=== PATIENT | male | born 1990 | race Caucasian/White ===

== ENCOUNTER 2019-08-18 11:27 | Emergency (ER) | payer OTHER, SELFPAY ==
[2019-08-18 11:38] VITALS: BP 137/79; PULSE 70; RESP 13; TEMP 36.6; O2SAT 99
--- NOTE | 2019-08-18 11:40 | ED.CHESTPAIN ---
HPI - Chest Pain <PILO Mosher - Last Filed: 08/18/19 22:03> General Chief Complaint: Chest Pain Stated Complaint: chest pain,shaking,high blood pressure,dizzy Time Seen by Provider: 08/18/19 11:39 History of Present Illness HPI narrative: 29yo male presents emergency department complaining of intermittent left-sided sharp stabbing chest pain. He states in May he was working out and started to see black in the corners of his vision during exercise, he wore a Holter monitor and he is scheduled to follow-up with cardiology later this month due to a low risk occasional arrhythmia. Patient is unsure of the name of this arrhythmia. 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 with his child, he got up at 7:45 a.m. and felt ?very tired and maybe a bit dizzy ?. Patient states he went to work at 10:00 a.m. and felt ?slight chest pain ?as described above. He took his blood pressure at that time and noted that it was 145/100, patient took his blood pressure with his hand in a different position immediately after in noted it was 120/90. Patient states the ?twinges of chest pain ?last a few seconds, no pain at this time. He does continue to feel dizzy when sitting up. Patient states his grandfather's brothers reported heart attacks and everyone on his father's side ?is taking metoprolol for her heart. Patient denies aggravating or alleviating symptoms. Patient denies shortness of breath, headaches, vision changes, abdominal pain, nausea, vomiting, diarrhea, other concerns. Related Data Home Medications Medication Instructions Recorded Confirmed No Known Home Medications 08/18/19 08/18/19 Allergies Allergy/AdvReac Type Severity Reaction Status Date / Time No Known Drug Allergies Allergy Verified 08/18/19 11:53 Review of Systems <PILO Mosher - Last Filed: 08/18/19 22:03> Review of Systems Narrative: REVIEW OF SYSTEMS: GENERAL: Denies fever or chills. HENT: No head trauma, hearing loss or sore throat. EYES: No loss of vision, double vision, eye pain, or irritation. CARDIOVASCULAR: Complains of chest pain, see HPI. RESPIRATORY: No shortness of breath or cough. GASTROINTESTINAL: No nausea, vomiting, diarrhea, or constipation. GENITOURINARY: No flank pain or dysuria. MUSCULOSKELETAL: No pain, weakness, or deformities. INTEGUMENTARY: No rash, lesions, or pruritus. NEURO: No numbness, tingling, memory loss, or confusion. PSYCH: No behavior or mood changes. Patient History <PILO Mosher - Last Filed: 08/18/19 22:03> Medical History No significant medical problems (Acute) Social History Smoking Status: Never smoker Substance Use Type: does not use Exam <PILO Mosher - Last Filed: 08/18/19 22:03> Initial Vital Signs Initial Vital Signs: Vital Signs Temperature 98 F 08/18/19 11:38 Pulse Rate 70 08/18/19 11:38 Respiratory Rate 13 08/18/19 11:38 Blood Pressure 137/79 08/18/19 11:38 Pulse Oximetry 99 08/18/19 11:38 PHYSICAL EXAMINATION: GENERAL: Well groomed, alert, and cooperative. Answers questions promptly and appropriately. Vital signs noted. HENT: Normocephalic, atraumatic. Ear canals patent. Oral mucosa is pink and moist. EYES: Conjunctiva pink, sclera white, no periorbital swelling. CHEST: Normal to inspection and without deformities. CARDIOVASCULAR: S1 and S2 sounds normal. Regular rate and rhythm, no murmurs, clicks, or bruits. No pedal edema. RESPIRATORY: Normal respiratory rate, trachea midline, airway patent. No stridor, nasal flaring or accessory muscle use. Lungs are clear in all duque without wheeze, rhonchi, or crackles. GASTROINTESTINAL: Bowel sounds normoactive. Abdomen is soft and non-tender. No organomegaly. MUSCULOSKELETAL: Normal gait and coordination. Equal tone and mass bilaterally. EXTREMITIES: CMS intact. Moves all extremities. SKIN: Warm, dry, soft, appropriate color for ethnicity. No lesions, rashes, or wounds. NEURO: Alert and Oriented X 3. Good coordination. No ataxia, or sensory deficits, or cognitive issues. PSYCH: Appropriate affect and mood. <Carola Wooten DO - Last Filed: 08/20/19 09:37> Initial Vital Signs Initial Vital Signs: Vital Signs Temperature 98 F 08/18/19 11:38 Pulse Rate 70 08/18/19 11:38 Respiratory Rate 13 08/18/19 11:38 Blood Pressure 137/79 08/18/19 11:38 Pulse Oximetry 99 08/18/19 11:38 Scores <Brigitte McintyrePILO - Last Filed: 08/18/19 22:03> HEART Score Heart Score history: Slightly Suspicious Heart Score EKG: Normal Heart Score Age: < 45 years old Heart Score risk factors: No known risk factors Heart Score troponin: < or = to normal limit Heart Score Total: 0 Course <Brigitte BurgerPILO alonzo - Last Filed: 08/18/19 22:03> Course Course Narrative: Patient patient remained chest pain-free throughout the stay in the emergency department, he states he is feeling much better after administration of fluid. Orders Ordered: Discontinued Medications Sodium Chloride (Normal Saline 0.9%) 1,000 mls @ 1,000 mls/hr IV BOLUS ONE Stop: 08/18/19 12:50 Last Infusion: 08/18/19 13:33 Dose: 0 mls/hr Documented by: Admin: 08/18/19 12:20 Dose: 1,000 mls/hr Documented by: DINA Sodium Chloride (Normal Saline 0.9%) 1,000 mls @ 1,000 mls/hr IV BOLUS ONE Stop: 08/18/19 13:39 Last Admin: 08/18/19 12:58 Dose: Not Given Documented by: DINA Consultations Consultation #1: Patient staffed with Dr. Wooten Vital Signs Vital signs: Vital Signs - 8 hr 08/18/19 11:38 08/18/19 13:30 Temperature 98 F Pulse Rate 70 78 Respiratory Rate 13 20 Blood Pressure 137/79 Blood Pressure [Left Arm] 132/75 Pulse Oximetry 99 100 <Carola Wooten DO - Last Filed: 08/20/19 09:37> Orders Ordered: Discontinued Medications Sodium Chloride (Normal Saline 0.9%) 1,000 mls @ 1,000 mls/hr IV BOLUS ONE Stop: 08/18/19 12:50 Last Infusion: 08/18/19 13:33 Dose: 0 mls/hr Documented by: Admin: 08/18/19 12:20 Dose: 1,000 mls/hr Documented by: DINA Sodium Chloride (Normal Saline 0.9%) 1,000 mls @ 1,000 mls/hr IV BOLUS ONE Stop: 08/18/19 13:39 Last Admin: 08/18/19 12:58 Dose: Not Given Documented by: DINA Vital Signs Vital signs: Vital Signs - 8 hr 08/18/19 11:38 08/18/19 13:30 Temperature 98 F Pulse Rate 70 78 Respiratory Rate 13 20 Blood Pressure 137/79 Blood Pressure [Left Arm] 132/75 Pulse Oximetry 99 100 MDM - Chest Pain <PILO Mosher - Last Filed: 08/18/19 22:03> Medical Records Data Attestation: I reviewed the patient's medical records. Lab Data Attestation: I reviewed the patient's lab results. Result diagrams: 08/18/19 12:20 08/18/19 12:20 Labs: Lab Results 08/18/19 08/18/19 Range/Units 12:20 12:20 WBC 4.9 (4.5-11.0) X10^3/uL RBC 4.66 (4.5-5.9) X10^6/uL Hgb 14.4 (13.5-17.5) g/dL Hct 41.4 (41-53) % MCV 88.9 (80-100) fL MCH 30.9 (26-34) PG MCHC 34.8 (30-36) % RDW 13.1 (11.6-14.8) % Plt Count 233 (150-400) X10^3/uL Neut % (Auto) 65.2 (50-75) % Lymph % (Auto) 21.6 L (25-40) % Nicollet % (Auto) 11.6 (3-14) % Eos % (Auto) 1.0 L (2-4) % Baso % (Auto) 0.6 (0-2) % Neut # (Auto) 3200 (3149-3503) /uL Lymph # (Auto) 1100 (3464-8853) /uL Nicollet # (Auto) 600 (0-900) /uL Eos # (Auto) 0 (0-450) /uL Baso # (Auto) 0 (0-100) /uL Sodium 138 (137-145) mmol/L Potassium 4.1 (3.4-5.1) mmol/L Chloride 99 (98-107) mmol/L Carbon Dioxide 25 (22-32) mmol/L BUN 15 (9-20) mg/dL Creatinine 0.70 (0.66-1.25) mg/dL Estimated GFR > 60.0 (>60) mL/min BUN/Creatinine Ratio 21.4 (6-22) Glucose 87 (70-100) mg/dL Calcium 9.5 (8.4-10.2) mg/dL Total Bilirubin 0.6 (0.2-1.3) mg/dL AST 23 (17-59) IU/L ALT 17 (<50) IU/L Alkaline Phosphatase 64 (38-126) U/L Total Creatine Kinase 54 L (55-170) U/L CK-MB (CK-2) TNP CK-MB (CK-2) Rel Index TNP Troponin I < 0.012 (0.01-0.034) ng/mL Total Protein 8.1 (6.3-8.2) g/dL Albumin 4.8 (3.5-5.0) g/dL Globulin 3.3 (1.7-4.1) g/dL Albumin/Globulin Ratio 1.5 (1.0-2.8) Lipase 48 (23-300) U/L Imaging Data Chest x-ray: Radiologist's Impression: [place] [id number] XRay Report Signed Patient: Severino Wilder [facility]#: [id number] : 1990Acct:[id number] Age/Sex: MDate of Service: 08/18/19 Loc: ED Accession Number: [id number] Procedure: XR chest 1V Ordering Provider: Brigitte Mcintyre PROCEDURE: XR CHEST 1V INDICATIONS: Chest pain TECHNIQUE: One view of the chest was acquired. COMPARISON: None. FINDINGS: Surgical changes and devices: None. Lungs and pleura: Lungs are clear. No pleural effusions or pneumothorax. Mediastinum: Mediastinal contours appear normal. Heart size is normal. Bones and chest wall: No suspicious bony lesions. Overlying soft tissues appear unremarkable. IMPRESSION: No evidence acute pulmonary process. Dictated by: Scout Sanchez M.D. on 08/18/2019 at 12:11 Approved by: Scout Sanchez M.D. on 08/18/2019 at 12:11 ECG Data Interpretation: Normal sinus rhythm, rate 71, MI interval 160, QTC 416. No ST elevation or ST depression. No T-wave abnormality. EKG viewed by Dr. Wooten per protocol. [facility] Narrative Medical decision making narrative: 29-year-old male who was reported to have a intermittent arrhythmia after wearing a Holter monitor and has follow-up with cardiology next few weeks, reports to the emergency room for ?twinges of chest pain lasting only a few seconds. Patient remained hemodynamically stable and chest pain free throughout his stay in the emergency department. Patient's heart score is 0, does not have any concerning symptoms such as shortness of breath, tachycardia, hypoxia. Patient has low risk factors. I suspect his chest pain is most likely caused by costochondritis, or anxiety, and less likely cardio pulmonary etiology due to negative x-ray and laboratory work as well as unremarkable EKG. Patient is low risk and was discharged home with strict return precautions. He agrees to plan of care and verbalized understanding. I am unsure the exact cause of patient's episodes of dizziness, however, he states he is feeling much better after administration of fluid and I suspect dehydration may play a role. I also suspect that patient may be feeling his side effects of only having a few hours of sleep last night. <Carola Wooten, DO - Last Filed: 08/20/19 09:37> Lab Data Labs: Lab Results 08/18/19 08/18/19 Range/Units 12:20 12:20 WBC 4.9 (4.5-11.0) X10^3/uL RBC 4.66 (4.5-5.9) X10^6/uL Hgb 14.4 (13.5-17.5) g/dL Hct 41.4 (41-53) % MCV 88.9 (80-100) fL MCH 30.9 (26-34) PG MCHC 34.8 (30-36) % RDW 13.1 (11.6-14.8) % Plt Count 233 (150-400) X10^3/uL Neut % (Auto) 65.2 (50-75) % Lymph % (Auto) 21.6 L (25-40) % Nicollet % (Auto) 11.6 (3-14) % Eos % (Auto) 1.0 L (2-4) % Baso % (Auto) 0.6 (0-2) % Neut # (Auto) 3200 (3471-6948) /uL Lymph # (Auto) 1100 (0743-1743) /uL Nicollet # (Auto) 600 (0-900) /uL Eos # (Auto) 0 (0-450) /uL Baso # (Auto) 0 (0-100) /uL Sodium 138 (137-145) mmol/L Potassium 4.1 (3.4-5.1) mmol/L Chloride 99 (98-107) mmol/L Carbon Dioxide 25 (22-32) mmol/L BUN 15 (9-20) mg/dL Creatinine 0.70 (0.66-1.25) mg/dL Estimated GFR > 60.0 (>60) mL/min BUN/Creatinine Ratio 21.4 (6-22) Glucose 87 (70-100) mg/dL Calcium 9.5 (8.4-10.2) mg/dL Total Bilirubin 0.6 (0.2-1.3) mg/dL AST 23 (17-59) IU/L ALT 17 (<50) IU/L Alkaline Phosphatase 64 (38-126) U/L Total Creatine Kinase 54 L (55-170) U/L CK-MB (CK-2) TNP CK-MB (CK-2) Rel Index TNP Troponin I < 0.012 (0.01-0.034) ng/mL Total Protein 8.1 (6.3-8.2) g/dL Albumin 4.8 (3.5-5.0) g/dL Globulin 3.3 (1.7-4.1) g/dL Albumin/Globulin Ratio 1.5 (1.0-2.8) Lipase 48 (23-300) U/L ECG Data Attestation: I personally reviewed and interpreted this ECG as follows: Prior ECG tracings: not available for review Interpretation: Normal sinus rhythm rate 71 p.r. interval 160 QRS [address] elevation depression or T-wave inversion Discharge Plan Departure Patient Disposition: Home Clinical Impression: Atypical chest pain Discharge Date/Time: 08/18/19 13:46 Instructions: DI for Atypical Chest Pain Activity Restrictions/Additional Instructions: Thank you for entrusting me with your care today. As discussed, your chest x-ray, EKG, and lab work are non-remarkable. Please follow-up with the cyber systems administrator regarding your abnormal rhythm as discussed. Return emergency department for any new or worsening symptoms such as chest pain, shortness of breath, worsening dizziness, uncontrollable vomiting, fevers, or other concerns. Prescriptions: No Action No Known Home Medications RF: 0
--- NOTE | 2019-08-18 11:51 | DI.RAD.S_ITS ---
PROCEDURE: XR CHEST 1V INDICATIONS: Chest pain TECHNIQUE: One view of the chest was acquired. COMPARISON: None. FINDINGS: Surgical changes and devices: None. Lungs and pleura: Lungs are clear. No pleural effusions or pneumothorax. Mediastinum: Mediastinal contours appear normal. Heart size is normal. Bones and chest wall: No suspicious bony lesions. Overlying soft tissues appear unremarkable. IMPRESSION: No evidence acute pulmonary process. Dictated by: Scout Sanchez M.D. on 08/18/2019 at 12:11 Approved by: Scout Sanchez M.D. on 08/18/2019 at 12:11
[2019-08-18] MEDS: SODIUM CHLORIDE 0.9% 1,000 ML 1000 ML IV (12:20)
[2019-08-18 12:30] LABS: Add Manual Diff / Slide Review NO; Basophils Absolute Auto 0 /uL (0-100); Basophils Percent Auto 0.6 % (0-2); Eosinophils Absolute Auto 0 /uL (0-450); Hematocrit 41.4 % (41-53); Hemoglobin 14.4 g/dL (13.5-17.5); Lymphocytes Absolute Auto 1100 /uL (1100-4500); Lymphocytes Percent Auto 21.6 % (25-40); Mean Corpuscular HGB Conc 34.8 % (30-36); Mean Corpuscular Hemoglobin 30.9 PG (26-34); Mean Corpuscular Volume 88.9 fL (80-100); Monocytes Absolute Auto 600 /uL (0-900); Monocytes Percent Auto 11.6 % (3-14); Neutrophils Absolute Auto 3200 /uL (1500-7000); Neutrophils Percent Auto 65.2 % (50-75); Platelet Count 233 X10^3/uL (150-400); Red Blood Cell Count 4.66 X10^6/uL (4.5-5.9); Red Cell Distribution Width 13.1 % (11.6-14.8); White Blood Cell Count 4.9 X10^3/uL (4.5-11.0)
[2019-08-18 12:41] LABS: Alanine Aminotransferase 17 IU/L (<50); Albumin 4.8 g/dL (3.5-5.0); Albumin Globulin Ratio 1.5 (1.0-2.8); Alkaline Phosphatase 64 U/L (38-126); Aspartate Aminotransferase 23 IU/L (17-59); BUN Creatinine Ratio 21.4 (6-22); Bilirubin Total 0.6 mg/dL (0.2-1.3); Blood Urea Nitrogen 15 mg/dL (9-20); Calcium 9.5 mg/dL (8.4-10.2); Carbon Dioxide 25 mmol/L (22-32); Chloride 99 mmol/L (98-107); Creatine Kinase 54 U/L (55-170); Estimated Glomerular Filt Rate > 60.0 mL/min (>60); Globulin 3.3 g/dL (1.7-4.1); Glucose 87 mg/dL (70-100); HEMOLYSIS 19 (0-50); Lipase 48 U/L (23-300); Potassium 4.1 mmol/L (3.4-5.1); Sodium 138 mmol/L (137-145); Total Protein 8.1 g/dL (6.3-8.2)
[2019-08-18 12:53] LABS: Troponin I < 0.012 ng/mL (0.01-0.034)
[2019-08-18 13:30] VITALS: BP 132/75; PULSE 78; RESP 20; O2SAT 100
== END 2019-08-18 13:46 | disposition home or self-care (01) ==
PROVIDERS: Emergency Provider Nurse Practitioner
DX: R07.89 Other chest pain (principal)
CPT/HCPCS: 36415; 71045; 80053; 82550; 83690; 84484; 85025; 93005; 96360; 99284; 99285

== ENCOUNTER → 2019-10-03 09:11 | Outpatient (CLI) | payer OTHER, SELFPAY ==
--- NOTE | 2019-10-03 | DI.ECHO.S_ITS ---
[facility] +---------+ : : [address] : [place] : : : : [id number] : : : : Phone: [phone] Echocardiogram Report + + :Name: SOFIA LERMA Study Date: 10/03/2019 Height: 70 in : :[facility] Weight: 205 lb : : Gender: Male BSA: 2.1 m2 : :: 1990 Age: 29 yrs BP: 138/82 mmHg: :Reason For Study: CHEST PAIN : :Ordering Physician: Sumi : :Petros Curran Performed By: Shari Abdul : :Referring: SUMI PAYNE : + + Interpretation Summary 1) Normal left ventricular size, thickness, wall motion, and systolic function (EF 55-60%). 2) Normal right ventricular size and function. 3) No significant valvular abnormalities. 4) No prior Echo available for comparison. Procedure: A two-dimensional transthoracic echocardiogram with color flow and Doppler was performed. There is no prior echocardiogram noted for this patient. The study quality was technically adequate. The patient was in sinus bradycardia with heart rates between 47-54 bpm during the exam. Left Ventricle: The left ventricle is normal in size. There is normal left ventricular wall thickness. The ejection fraction is estimated to be 55-60%. Left ventricular systolic function is normal without focal wall motion abnormalities. Right Ventricle: The right ventricle is normal in size and function. Atria: The left atrial size is normal. Right atrial size is normal. There is no Doppler evidence for an interatrial shunt. Mitral Valve: The mitral valve is normal in structure and function. There is mild mitral regurgitation. Aortic Valve: The aortic valve is normal in structure and function. The aortic valve is trileaflet. The aortic valve opens well. There is no aortic valve stenosis. No aortic regurgitation is present. Tricuspid Valve: The tricuspid valve is normal in structure and function. There is mild tricuspid regurgitation. Pulmonary artery pressures cannot be estimated because of the lack of a measurable TR jet velocity but the IVC suggests a CVP of around 3 mmHg. Pulmonic Valve: The pulmonic valve is normal in structure and function. There is trace pulmonic regurgitation. Great Vessels: The aortic root is normal size. The dimensions of the ascending aorta are normal. The IVC is of normal diameter and collapses greater than 50% with a sniff. This suggests a low right atrial pressure of 3 mm Hg. Pericardium/ Pleura There is no pericardial effusion. There is no pleural effusion. MMode/2D Measurements & Calculations LVIDd: 5.6 cm Ao root diam: 3.5 cm LVIDs: 4.0 cm asc Aorta Diam: 2.9 cm FS: 28.1 % Ao Arch Diam (Prox Trans): 2.7 cm EPSS: 0.51 cm IVSd: 0.83 cm LVPWd: 0.86 cm LV posadas. diameter/BSA (cm/m^2): 2.6 LV sys. diameter/BSA (cm/m^2): 1.9 LA A2 area: 18.8 cm2 RA long axis: 5.0 cm LA A4 area: 19.0 cm2 RA area: 18.5 cm2 LA length (vol): 5.7 cm RA vol: 58.7 ml LA vol: 53.5 ml RA : 27.8 ml/m2 LA vol index: 25.3 ml/m2 IVC diam: 1.8 cm RVD1 (basal): 3.2 cm TAPSE: 2.2 cm Doppler Measurements & Calculations Ao V2 max: 106.3 cm/sec LVOT Max Waylon: 83.2 cm/sec Ao V2 mean: 69.6 cm/sec LV V1 max P.8 mmHg Ao max P.5 mmHg LV V1 VTI: 20.2 cm Ao mean P.2 mmHg sev ratio: 0.80 Ao V2 VTI: 25.4 cm MV E max waylon: 78.6 cm/sec PA V2 max: 70.0 cm/sec MV A max waylon: 39.3 cm/sec PA V2 mean: 45.7 cm/sec MV E/A: 2.0 PA mean P.98 mmHg Med Peak E' Waylon: 14.2 cm/sec PA Accel Time: 0.12 sec E/E' med: 5.5 Lat Peak E' Waylon: 19.5 cm/sec E/E' lat: 4.0 E/e' average: 4.8 MV dec time: 0.25 sec MV P1/2t: 73.2 msec MV P1/2t max waylon: 80.2 cm/sec MVA(P1/2t): 3.0 cm2 Reading Physician:04:32 PM
== END ==
PROVIDERS: Referring Provider Internal Medicine; Visit Provider Internal Medicine
DX: I08.1 Rheumatic disorders of both mitral and tricuspid valves (principal); R07.9 Chest pain, unspecified
CPT/HCPCS: 93306

== ENCOUNTER → 2020-01-07 14:56 | Outpatient (CLI) | payer OTHER, SELFPAY ==
[2020-01-08 08:57] LABS: COVID19 Sendout Not Detected (Not Detect)
== END ==
PROVIDERS: Visit Provider Physician Assistant
DX: Z11.59 Encounter for screening for other viral diseases (principal)
CPT/HCPCS: 87635

== ENCOUNTER 2020-01-10 11:36 | Day surgery (SDC) | payer OTHER, SELFPAY ==
[2020-01-10] VITALS (7 sets, daily range): BP systolic 109–122; BP diastolic 64–77; PULSE 62–77; RESP 12–17; TEMP 36.2–36.6; O2SAT 95–100; BMI 30.8
--- NOTE | 2020-01-10 | PATH_ITS ---
[facility] Accession Number: [id number] . 01 Material submitted: . PART A: small bowel - SMALL BOWEL PART B: gastrointestinal site - GASTRIC PART C: esophagus - ESOPHAGEAL . 02 Diagnosis: A. Small Bowel, Biopsy: Duodenal mucosa with no diagnostic abnormality. Negative for active inflammation, features of sprue, dysplasia, or malignancy. . B. Stomach, Biopsy: Body mucosa with no diagnostic abnormality. No evidence of Helicobacter organisms on H/E stain. Negative for intestinal metaplasia. Negative for dysplasia and malignancy. . C. Esophagus, Biopsy: Squamocolumnar junctional mucosa with mild reactive features of reflux esophagitis. Focally up to 10 eosinophils per high-power field. Negative for specialized intestinal metaplasia. Negative for dysplasia or malignancy. [facility] 01/12/2020 0959 Local . 02 Electronically signed: . Sal Munoz MD, PhD, Pathologist NPI- [id number] . 01 Gross description: . Part A: SMALL BOWEL: Received in formalin are 4 fragment(s) of allen, soft tissue measuring 0.4 x 0.2 x 0.2 cm to 0.2 x 0.1 x 0.1 cm submitted entirely in 1 cassette(s) Part B: GASTRIC: Received in formalin is 1 fragment(s) of allen, soft tissue measuring 0.4 x 0.1 x 0.1 cm submitted entirely in 1 cassette(s) Part C: ESOPHAGEAL: Received in formalin are 3 fragment(s) of allen, soft tissue measuring 0.3 x 0.3 x 0.1 cm to 0.3 x 0.1 x 0.1 cm submitted entirely in 1 cassette(s) /QBJ 01/11/2020 0735 Local . 02 Pathologist provided ICD-10: R10.13, K21.9 . 02 CPT . 251987, 061916, 527227 Performed at: 01 [facility] [address] [place] [address], [place], [place] [id number] MD Vernon Jaime MD Phone: [phone] Performed at: [facility] [address] [address] [place], [place] [id number] MD Sara Escobar MD Phone: [phone]
[2020-01-10] MEDS: SODIUM CHLORIDE 0.9% 1,000 ML 21 ML IV (12:53)
--- NOTE | 2020-01-10 13:51 | PM.HP.1 ---
History of Present Illness History of Present Illness Date Patient Seen: 01/10/20 Time Patient Seen: 13:52 Chief complaint: [id number] Narrative: Nausea vomiting and bloating Patient History Medical History (Updated 09/02/19 @ 00:00 by ) No significant medical problems (Acute) Family & Social History Social History: household members spouse Tobacco & Substance use: Smoking Status Never smoker alcohol intake frequency 0-2 drinks per day Substance Use Type does not use Meds Home Medications and Allergies Home Medications Medication Instructions Recorded Confirmed Type metoprolol succinate 12.5 mg PO DAILY 01/10/20 01/10/20 History Allergies Allergy/AdvReac Type Severity Reaction Status Date / Time No Known Drug Allergies Allergy Verified 01/10/20 12:32 Exam Vital Signs (past 8 hours): - 01/10/20 12:34 Temperature 97.3 F L Pulse Rate 63 Respiratory Rate 14 Blood Pressure 119/67 Pulse Oximetry 100 Oxygen Delivery Method Room Air Narrative Exam Narrative: Oropharynx free of lesions Chest colonoscopy percussion Cardiac exam reveals no S3 or murmur Assessment & Plan Assessment & Plan narrative: Nausea vomiting bloating and heartburn. EGD with small bowel biopsies to be performed. Risks, benefits, alternatives have been explained.
--- NOTE | 2020-01-10 13:53 | PM.OP.ENDO ---
Operative Date/Time/Diagnoses Date of procedure: 01/10/20 Time of procedure: 13:53 Pre-op diagnosis: See indication and findings Procedure & Clinicians Study performed: EGD with biopsy Indications: Nausea vomiting heartburn and bloating Surgeon: Mackenzie Echavarria Procedure Notes Procedure in detail: After informed consent was obtained the patient was placed in left lateral decubitus position. The video upper scope placed into the oropharynx with the patient's help solve the esophagus. The esophagus stomach and duodenum were carefully examined. On withdrawal. Retroflexed view the GE junction was performed. The scope was removed. The patient tolerated procedure well. Blood loss none Complications none Sedation Total sedation time 15 minutes Versed 12 mg fentanyl a 200 mg IV titration Findings 1. Intense multiple rings in the mid to upper esophagus biopsies taken to rule out eosinophilic esophagitis 2. Scattered and striped erythema in the gastric antrum biopsies taken to rule out Helicobacter 3. Normal duodenal bulb and sweep biopsies taken to rule out celiac Patient will have follow-up visit either with [facility] [place] or in person with Dr. Felipe
[2020-01-10] MEDS: fentaNYL 250 MCG/5 ML INJ IV (14:09)
[2020-01-10] MEDS: MIDAZOLAM 5 MG/5 ML VIAL IV (14:09)
== END 2020-01-10 15:12 | disposition home or self-care (01) ==
PROVIDERS: PCP Family Medicine; Referring Provider Internal Medicine Gastroenterology; Visit Provider Internal Medicine Gastroenterology
PROC: 0DJ08ZZ Inspection of Upper Intestinal Tract, Via Natural or Artificial Opening Endoscopic (ICD-10-PCS; CPT 43235; principal; 2020-01-10 14:00)
DX: K21.0 Gastro-esophageal reflux disease with esophagitis (principal)
CPT/HCPCS: 43239; J2250; J3010

== ENCOUNTER 2020-12-01 13:03 | Emergency (ER) | payer OTHER, SELFPAY ==
[2020-12-01] VITALS (7 sets, daily range): BP systolic 123–134; BP diastolic 61–84; PULSE 93–115; RESP 18; TEMP 36.8; O2SAT 99–100; BMI 30.1
--- NOTE | 2020-12-01 13:34 | DI.RAD.S_ITS ---
PROCEDURE: XR FOOT LT MIN 3V INDICATIONS: dropped log on foot, bruising pain of toes. TECHNIQUE: 3 views of the foot were acquired. COMPARISON: None. FINDINGS: Bones: No fractures or dislocations. No suspicious bony lesions. Soft tissues: No tibiotalar joint effusion. Achilles tendon appears normal. IMPRESSION: No displaced fractures are seen on these plain films. If there is focal tenderness, or other clinical concern for a fracture not seen on these images in this patient with a given history of trauma, please consider a dedicated CT or a short-term followup plain film series (in 1-2 weeks) for further evaluation. Dictated by: Tahir Linares M.D. on 12/01/2020 at 12:51 Approved by: Tahir Linares M.D. on 12/01/2020 at 12:52
[2020-12-01 14:02] LABS: Add Manual Diff / Slide Review NO; Basophils Absolute Auto 100 /uL (0-100); Basophils Percent Auto 0.8 % (0-2); Eosinophils Absolute Auto 0 /uL (0-450); Eosinophils Percent Auto 0.5 % (2-4); Hematocrit 43.2 % (41-53); Hemoglobin 14.8 g/dL (13.5-17.5); Lymphocytes Absolute Auto 2100 /uL (1100-4500); Lymphocytes Percent Auto 29.8 % (25-40); Mean Corpuscular HGB Conc 34.3 % (30-36); Mean Corpuscular Hemoglobin 30.6 PG (26-34); Mean Corpuscular Volume 89.1 fL (80-100); Monocytes Absolute Auto 700 /uL (0-900); Monocytes Percent Auto 10.5 % (3-14); Neutrophils Absolute Auto 4100 /uL (1500-7000); Neutrophils Percent Auto 58.4 % (50-75); Platelet Count 263 X10^3/uL (150-400); Red Blood Cell Count 4.85 X10^6/uL (4.5-5.9); Red Cell Distribution Width 13.5 % (11.6-14.8)
[2020-12-01] MEDS: SODIUM CHLORIDE 0.9% 1,000 ML 1000 ML IV (14:02)
[2020-12-01 14:12] LABS: Alanine Aminotransferase 25 IU/L (<50); Albumin 4.8 g/dL (3.5-5.0); Albumin Globulin Ratio 1.3 (1.0-2.8); Alkaline Phosphatase 93 U/L (38-126); Aspartate Aminotransferase 27 IU/L (17-59); BUN Creatinine Ratio 17.9 (6-22); Bilirubin Total 0.4 mg/dL (0.2-1.3); Blood Urea Nitrogen 12 mg/dL (9-20); Calcium 9.6 mg/dL (8.4-10.2); Carbon Dioxide 28 mmol/L (22-32); Chloride 102 mmol/L (98-107); Estimated Glomerular Filt Rate > 60.0 mL/min (>60); Globulin 3.7 g/dL (1.7-4.1); Glucose 101 mg/dL (70-100); HEMOLYSIS < 15 (0-50); Potassium 3.9 mmol/L (3.4-5.1); Sodium 140 mmol/L (137-145); Total Protein 8.5 g/dL (6.3-8.2)
--- NOTE | 2020-12-01 15:06 | ED_ITS ---
HPI - Extremity Injury (Lower) General Chief Complaint: Extremity Injury, Lower Stated Complaint: LT TOE INJURY Time Seen by Provider: 12/01/20 13:33 Source: patient Mode of arrival: Ambulatory Limitations: no limitations History of Present Illness HPI Narrative: Patient is a 30-year-old male with a history of SVT and is on metoprolol here for evaluation of an injuries that he sustained last evening when he dropped a log on his left foot. He states that he has had discomfort since then. Has had problems even putting a sock on because of the discomfort. Had bruising this morning. Related Data Home Medications Medication Instructions Recorded Confirmed metoprolol succinate 12.5 mg PO DAILY 01/10/20 01/10/20 Allergies Allergy/AdvReac Type Severity Reaction Status Date / Time No Known Drug Allergies Allergy Verified 01/10/20 12:32 Review of Systems Constitutional Constitutional: Denies fever(s) Cardiovascular Cardiovascular: Reports rapid heart rate Respiratory Respiratory: Reports system reviewed and no additional complaints, except as documented Musculoskeletal Musculoskeletal: Denies tingling Comments: Left great toe pain Integumentary/Breasts Comments: Bruising around the left great toe Neurologic Neurologic: Denies tingling Hematologic/Lymphatic On Anticoagulants: No Allergic/Immunologic Allergic/Immunologic: Reports system reviewed and no additional complaints, except as documented Patient History Medical History No significant medical problems SVT (supraventricular tachycardia) Social History household members: spouse Smoking Status: Never smoker Smoking Status: Never smoker alcohol intake frequency: 0-2 drinks per day Substance Use Type: does not use Exam Initial Vital Signs Initial Vital Signs: Vital Signs Temperature 98.2 F 12/01/20 13:19 Pulse Rate 112 H 12/01/20 13:19 Respiratory Rate 18 12/01/20 13:19 Blood Pressure 128/83 12/01/20 13:19 Pulse Oximetry 100 12/01/20 13:19 Const General: cooperative and comfortable Limitations: mental status not altered HENMT Head: normal to inspection and normocephalic Resp Effort & Inspection: normal respiratory effort Auscultation: clear to auscultation bilaterally Cardio Rate: regular rate Rhythm: regular rhythm Pulses: dorsalis pedis present on the left Skin Other: Bruising on the dorsum of the left great toe and 2nd toe. No breaks in the skin. Neuro General: patient alert and patient awake Sensory Exam: no sensory deficits noted Extrem General: capillary refill normal Psych Appearance: grossly normal and well kempt Course Orders Ordered: ED Orders 12/01/20 13:08 EKG-12 Lead Routine 12/01/20 13:34 XR foot LT min 3V Stat 12/01/20 13:52 CMP [Comprehensive Metabolic Panel] Stat Complete Blood Count AUTO DIFF Stat Discontinued Medications Sodium Chloride (Normal Saline 0.9%) 1,000 mls @ 1,000 mls/hr IV BOLUS ONE Stop: 12/01/20 14:58 Last Admin: 12/01/20 14:02 Dose: 1,000 mls/hr Documented by: FREDRICK Vital Signs Vital signs: Vital Signs - 8 hr 12/01/20 13:19 12/01/20 13:24 12/01/20 13:28 Temperature 98.2 F Pulse Rate 112 H 104 H Pulse Rate [Dorsalis Pedis] 115 H Respiratory Rate 18 Blood Pressure 128/83 Pulse Oximetry 100 100 12/01/20 13:30 12/01/20 14:00 12/01/20 14:30 Temperature Pulse Rate 102 H 96 H 93 H Pulse Rate [Dorsalis Pedis] Respiratory Rate Blood Pressure 134/84 123/68 129/72 Pulse Oximetry 100 99 100 MDM - Extremity Injury (Lower) Lab Data Attestation: I reviewed the patient's lab results. Result diagrams: 12/01/20 13:52 12/01/20 13:52 Labs: Lab Results 12/01/20 12/01/20 Range/Units 13:52 13:52 WBC 7.0 (4.5-11.0) X10^3/uL RBC 4.85 (4.5-5.9) X10^6/uL Hgb 14.8 (13.5-17.5) g/dL Hct 43.2 (41-53) % MCV 89.1 (80-100) fL MCH 30.6 (26-34) PG MCHC 34.3 (30-36) % RDW 13.5 (11.6-14.8) % Plt Count 263 (150-400) X10^3/uL Neut % (Auto) 58.4 (50-75) % Lymph % (Auto) 29.8 (25-40) % [place] % (Auto) 10.5 (3-14) % Eos % (Auto) 0.5 L (2-4) % Baso % (Auto) 0.8 (0-2) % Neut # (Auto) 4100 (0074-9498) /uL Lymph # (Auto) 2100 (3695-5647) /uL [place] # (Auto) 700 (0-900) /uL Eos # (Auto) 0 (0-450) /uL Baso # (Auto) 100 (0-100) /uL Sodium 140 (137-145) mmol/L Potassium 3.9 (3.4-5.1) mmol/L Chloride 102 (98-107) mmol/L Carbon Dioxide 28 (22-32) mmol/L BUN 12 (9-20) mg/dL Creatinine 0.67 (0.66-1.25) mg/dL Estimated GFR > 60.0 (>60) mL/min BUN/Creatinine Ratio 17.9 (6-22) Glucose 101 H (70-100) mg/dL Calcium 9.6 (8.4-10.2) mg/dL Total Bilirubin 0.4 (0.2-1.3) mg/dL AST 27 (17-59) IU/L ALT 25 (<50) IU/L Alkaline Phosphatase 93 (38-126) U/L Total Protein 8.5 H (6.3-8.2) g/dL Albumin 4.8 (3.5-5.0) g/dL Globulin 3.7 (1.7-4.1) g/dL Albumin/Globulin Ratio 1.3 (1.0-2.8) Imaging Data Extremity x-ray #1: Radiologist's Impression: [address] [id number] ReportSigned Patient: Severino Wilder [facility]#: [id number]: 1990Acct:[id number]/Sex: 30 / MDate of Service: 12/01/20Loc: EDAccession Number: [id number] Procedure: XR foot LT min 3V Ordering Provider: Norma Gilmore D.O. PROCEDURE: XR FOOT LT MIN 3V INDICATIONS: dropped log on foot, bruising pain of toes. TECHNIQUE: 3 views of the foot were acquired. COMPARISON: None. FINDINGS: Bones: No fractures or dislocations. No suspicious bony lesions. Soft tissues: No tibiotalar joint effusion. Achilles tendon appears normal. IMPRESSION: No displaced fractures are seen on these plain films. If there is focal tenderness, or other clinical concern for a fracture not seen on these images in this patient with a given history of trauma, please consider a dedicated CT or a short-term followup plain film series (in 1-2 weeks) for further evaluation. Dictated by: Tahir Linares M.D. on 12/01/2020 at 12:51 Approved by: Tahir Linares M.D. on 12/01/2020 at 12:52 ECG Data Attestation: I personally reviewed and interpreted this ECG as follows: Prior ECG tracings: not available for review Interpretation: Sinus tachycardia Ventricular rate 105 Normal axis Normal QRS Normal QTC No ST T wave changes MDM Narrative Medical decision making narrative: Patient was tachycardic upon arrival but other than heart rate 105 his EKG is unremarkable. Labs are unremarkable. I suspect that this is his SVT. He was not tachycardic at the time of my exam. He does have bruising on the left great toe and 2nd toe. The rest of his foot and ankle and lower extremity exam on the left is unremarkable. He is neurovascularly intact. No fractures on the x-rays. Will send home with a orthopedic shoe for his comfort. Was given return precautions and follow-up instructions. He expressed understanding and agreement. Discharge Plan Departure Patient Disposition: Home Clinical Impression: Contusion of toe of left foot Instructions: DI for Contusion, How To Perform RICE (Rest, Ice, Compress, Elevate) Activity Restrictions/Additional Instructions: There were no fractures noted on the x-rays. I do recommend that you keep your foot elevated use ice. You can take Tylenol/ibuprofen for any discomfort. Use the hard sole shoe for your comfort. Contact your primary provider for follow- up. Return to the emergency department for any new or worsening symptoms Prescriptions: No Action metoprolol succinate 25 mg tablet extended release 24 hr 12.5 mg PO DAILY RF: 0 Referrals: Daria Garcia MD [Primary Care Provider] -
== END 2020-12-01 15:22 | disposition home or self-care (01) ==
PROVIDERS: Emergency Medicine; Emergency Provider Emergency Medicine; PCP Family Medicine
DX: S90.112A Contusion of left great toe without damage to nail, initial encounter (principal); R00.0 Tachycardia, unspecified; W22.8XXA Striking against or struck by other objects, initial encounter
CPT/HCPCS: 36415; 73630; 80053; 85025; 93005; 96360; 99284

== ENCOUNTER → 2021-02-19 09:55 | Outpatient (CLI) | payer OTHER, SELFPAY ==
[2021-02-19 11:47] LABS: COVID19 -Nasal RAPID Negative (Negative)
== END ==
PROVIDERS: PCP Family Medicine; Visit Provider Student in an Organized Health Care Education/Training Program
DX: Z01.812 Encounter for preprocedural laboratory examination (principal); Z20.822 Contact with and (suspected) exposure to COVID-19
CPT/HCPCS: 87635

== ENCOUNTER 2021-02-21 10:39 | Day surgery (SDC) | payer OTHER, SELFPAY ==
[2021-02-12 12:45] VITALS: BMI 27.9
[2021-02-21] VITALS (10 sets, daily range): BP systolic 119–146; BP diastolic 75–89; PULSE 69–98; RESP 9–19; TEMP 36.5–37; O2SAT 95–100; BMI 27.9
[2021-02-21] MEDS: LACTATED RINGERS 1,000 ML 42 ML IV ×2 (11:09→13:59)
--- NOTE | 2021-02-21 12:20 | PM.PREOP ---
Pre-operative Note COVID-19 COVID-19 status: Negative Result date/Date tested (Pos, Neg/Pending): 02/19/21 Interval Note History & Physical reviewed/Exam performed by Physician: Yes Changes to H&P: No
[2021-02-21] MEDS: CEFAZOLIN 1 GM VIAL 2 GM IV (13:19)
--- NOTE | 2021-02-21 13:32 | SUR.OPER ---
Supine, head on gel donut. Arms padded with gel pads, tucked at sides, towel roll under shoulders. Safety belt at thigh. Legs uncrossed.
[2021-02-21] MEDS: BUPIVACAINE 0.25% W/ EPI 30 ML VIAL INJ (14:38)
--- NOTE | 2021-02-21 14:43 | DI.RAD.S_ITS ---
PROCEDURE: XR CERVICAL SPINE 2V OR 3V INDICATIONS: C5-6 ACDF TECHNIQUE: 2 intraoperative view(s) of the cervical spine were acquired. COMPARISON: None. FINDINGS: ACDF at C5-C6 projects in the expected location. Endotracheal tube. IMPRESSION: Intraoperative guidance provided. Dictated by: Vinny Barrios M.D. on 02/21/2021 at 15:19 Approved by: Vinny Barrios M.D. on 02/21/2021 at 15:20
--- NOTE | 2021-02-21 14:44 | PM.OP.1 ---
Operative Date/Time/Diagnoses Date of procedure: 02/21/21 Time of procedure: 13:00 Pre-op diagnosis: 1. C5-6 spinal stenosis 2. 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 C5-6 anterior cervical discectomy and fusion 2.C5-6 anterior interbody cage placement 3. C5-6 anterior instrumentation with plate and screw placement. Same procedure as scheduled: Yes Indications: Patient has been having chronic neck pain and worsening cervical radiculopathy. Patient failed multiple conservative management with worsening pain weakness and numbness in her upper extremity. Patient has been having difficulty performing activity of daily living. After discussing risks benefits of treatment options, patient elected proceed with surgery. Surgeon: Taylor Trevino [employer] Counter Representative: Jamshid Cervantes Click Yes if Unassisted: No Anesthesia Type: General Operative Notes Closure Type: primary Specimen(s): none sent Prosthetic devices, grafts, tissues, transplants, or devices: GLobus Extend plate, PEEK cage Estimated Blood Loss (mL): 50 Blood products transfused: none Procedure in detail: Patient was seen in the preoperative area. Risks and benefits of the surgery was discussed with the patient. Informed consent was obtained from the patient and placed in the chart. Surgical site was marked. Patient was taken to the operative room. General anesthesia was administered. Prophylactic antibiotic was given to the patient less than 30 min before the incision was made. Patient was placed into a supine position on a radiolucent table. Patient's shoulders were taped down to allow proper C-arm imaging. Anterior cervical area was prepped and draped in a sterile fashion. Time-out was performed at this time. Using lateral C-arm imaging, the level between C5 and C6 was identified and marked on patient's neck. A oblique incision from midline towards medial border of sternocleidomastoid muscle was made. The platysma muscle was incised in line with skin incision. Metzenbaum scissor was used to develop the plane between the medial border of sternocleidomastoid d and the strap muscles medially. The carotid sheath and its contents were identified and protected behind the hand-held retractor during the entire case. The plane between the carotid sheath and strap muscles was developed with Metzenbaum scissors. Dissection was made down to the level of the anterior cervical fascia. Longus colli muscle was incised on the anterior aspect of vertebral bodies bilaterally from C5-C6. Spinal needle was placed into the C5-6 disc space and confirmed with lateral C-arm imaging. Using microsurgical technique and operative microscope, anterior cervical diskectomy was performed at C5-6 level. This was done by removing the disc material, removing the anterior and posterior osteophytes posterior longitudinal ligaments along with performing bilateral foraminotomies at the C5-6 levels. Patient was found to have severe foraminal stenosis. Patient's stenosis was fully decompressed after decompression was completed. After the diskectomy was completed, an anterior interbody cage was obtained. The cage was packed with DBM bone grafting material. One cage each along with the bone grafting material was then packed into the interbody space at C5-6 along with an anterior cervical plate. The cervical plate was stabilized to the C5-C6 vertebrae using screws. After confirming placement of the hardware with AP and lateral C-arm imaging, the screws were locked into the plate using the locking mechanism and torque limiting screwdriver. After the hardware was placed and confirmed with AP and lateral C-arm imaging, the wound was irrigated with sterile normal saline. The platysma muscle and the subcutaneous tissue was closed with 2-0 Vicryl. The skin was closed with 4-0 Monocryl and Steri-Strips. Patient tolerated the procedure well. Patient was transferred recovery room in stable condition. There were no complications. Complications: none Post-operative Condition: stable Disposition: PACU Plan for aftercare: Discharge to home
[2021-02-21] MEDS: fentaNYL 100 MCG/2 ML INJ IV (15:12)
[2021-02-21] MEDS: LORazepam 2 MG/ML INJ 0.25 MG IV ×2 (15:14→15:31)
[2021-02-21] MEDS: hydrOXYzine 50 MG/ML INJ 25 MG IM (15:17)
--- NOTE | 2021-02-21 15:34 | SUR.PHASEI ---
Ativan given x2 as per MAR for muscle tightness. Pt denies pain.
[2021-02-21] MEDS: OXYCODONE/ACETAMINOPHEN 5/325 TABLET 1 TAB PO (15:46)
--- NOTE | 2021-02-21 15:56 | SUR.PHASEII ---
Report to SUSY Kruger.
== END 2021-02-21 17:00 | disposition home or self-care (01) ==
PROVIDERS: PCP Family Medicine; Referring Provider Orthopaedic Surgery Orthopaedic Surgery of the Spine; Visit Provider Orthopaedic Surgery Orthopaedic Surgery of the Spine
PROC: (CPT 22853; principal; 2021-02-21 13:15)
DX: M47.22 Other spondylosis with radiculopathy, cervical region (principal); M48.02 Spinal stenosis, cervical region; M25.78 Osteophyte, vertebrae; K21.9 Gastro-esophageal reflux disease without esophagitis; I47.1 Supraventricular tachycardia
CPT/HCPCS: 22853; 22551; 72040; 76000; 82962; C1776; J0690; J2060; J2250; J2704; J3010; J3410